=== PATIENT | male | born 1990 ===

== ENCOUNTER → 2017-09-25 | Outpatient (CLI) | payer OTHER ==
--- NOTE | 2017-09-25 13:54 | DIAGNOSTIC IMAGING REPORT ---
L SHOULDER MIN 2 VIEWS CLINICAL HISTORY: 27 years-old Male presenting with B/L SHOULDER PAIN. TECHNIQUE: External rotation, transscapular Y, and axillary views of the left shoulder were obtained. COMPARISON: Correlation made to plain radiograph the right shoulder performed the same day. FINDINGS: Glenohumeral and acromioclavicular joints congruent. No subluxation of the humeral head. Regional soft tissues normal. No advanced degenerative change. Visualized portion of the left hemithorax normal. IMPRESSION: No acute osseous injury of the left shoulder. Electronically signed by: Ruddy Pathak M.D. 09/25/2017 1:53 PM Dictated Date/Time: 09/25/2017 1:52 PM
--- NOTE | 2017-09-25 13:55 | DIAGNOSTIC IMAGING REPORT ---
R SHOULDER MIN 2 VIEWS CLINICAL HISTORY: 27 years-old Male presenting with B/L SHOULDER PAIN. TECHNIQUE: External rotation, transscapular Y, and axillary views of the right shoulder were obtained. COMPARISON: Correlation made to plain radiographs of the left shoulder performed the same day. FINDINGS: Glenohumeral and acromioclavicular joints congruent. No acute fracture or malalignment. No advanced degenerative change. Regional soft tissues normal. Visualized portion of the right hemithorax normal. IMPRESSION: No acute osseous injury of the right shoulder. Electronically signed by: Ruddy Pathak M.D. 09/25/2017 1:53 PM Dictated Date/Time: 09/25/2017 1:53 PM
== END | disposition home or self-care (01) ==
LOC: C.RDSM 13:46
PROVIDERS: ATTEND Family Medicine
DX: M25.511 Pain in right shoulder (principal); M25.512 Pain in left shoulder